=== PATIENT | female | born 1955 | race Caucasian/White ===

== ENCOUNTER 2020-06-14 18:48 | Emergency (ER) | payer OTHER, SELFPAY ==
[~2020-06-14] VITALS: Ht 147.3 cm; Wt 79.4 kg
[2020-06-14] MEDS ORDERED: IPRATROPIUM/ALBUTEROL SULFATE 3 ML AMPUL.NEB (DUONEB) INH ONE (19:45)
[2020-06-14] MEDS ORDERED: guaiFENesin 200 MG/CODEINE 20 MG/ 10 ML UDC PO ONE (19:45)
[2020-06-14 19:50] VITALS: BP_SYST 145
[2020-06-14] MEDS ORDERED: IPRATROPIUM/ALBUTEROL SULFATE 3 ML AMPUL.NEB (DUONEB) ONE (20:00)
[2020-06-14] MEDS ORDERED: guaiFENesin 200 MG/CODEINE 20 MG/ 10 ML UDC ONE (20:13)
[2020-06-14 21:35] VITALS: BP_SYST 145
== END 2020-06-14 21:35 | disposition home or self-care (01) ==
LOC: SED 18:48
DX: J06.9 Acute upper respiratory infection, unspecified (principal); E07.9 Disorder of thyroid, unspecified; E78.5 Hyperlipidemia, unspecified; Z20.822 Contact with and (suspected) exposure to COVID-19
CPT/HCPCS: 36415; 71045; 94640; 99284